=== PATIENT | female | born 1975 | race Caucasian/White ===

== ENCOUNTER 2017-10-07 16:11 | Emergency (ER) | payer MEDICARE ==
[~2017-10-07] VITALS: Ht 167.6 cm; Wt 98.0 kg
[2017-10-07 16:16] VITALS: BP 123/72; PULSE 115; RESP 16; TEMP 101.9; O2SAT 97
--- NOTE | 2017-10-07 16:41 | PD ---
HPI Chief Complaint: Skin Problem Time Seen by Provider: 16:25 Travel History International Travel<30 days: No Contact w/Intl Traveler<30days: No Traveled to known affect area: No History of Present Illness HPI The patient was seen and examined in the presence of the nurse. This patient complains of an infected lesion on her right side. Duration 3 days. Symptom severity is moderate. She is spiked a fever. She went to the hospital at [facility] yesterday and was given some antibiotics orally. No testing was done. She reports that the area is spreading and worsening. No alleviating factors. No exacerbating factors. She thought it might be an insect bite but nothing happened her specifically that she knows in that area. No history of HIV or diabetes or IV drug use PFSH Past Medical History Respiratory: Yes (LEFT LUNG REMOVED) Social History Alcohol Use: No Tobacco Use: No Substance Use: No Allergies-Medications (Allergen,Severity, Reaction): Coded Allergies: clozapine (Verified Allergy, Intermediate, BRADYCARDIA, HYPOTENSION, ) Reported Meds & Prescriptions Reported Meds & Active Scripts Active Reported [Deprexa] 250 Mg PO BID Lexapro (Escitalopram Oxalate) 20 Mg Tab 20 Mg PO DAILY Trazodone (Trazodone HCl) 100 Mg Tablet 100 Mg PO HS Review of Systems General / Constitutional: Positive: Fever, Chills Eyes: No: Visual changes HENT: No: Headaches Cardiovascular: No: Chest Pain or Discomfort Respiratory: No: Shortness of Breath Gastrointestinal: No: Abdominal Pain Genitourinary: No: Dysuria Musculoskeletal: No: Pain Skin: No Rash Neurologic: No: Weakness Psychiatric: No: Depression Endocrine: No: Polydipsia Hematologic/Lymphatic: No: Easy Bruising Physical Exam Narrative GENERAL: Well-nourished, well-developed patient in no apparent distress. SKIN: Focused skin assessment reveals no rash and nodules. Skin is Warm and dry. Patient has an erythematous indurated area in her right side. It is tender. Is warm. There is no fluctuance or drainage. Near the back of the area is a darkened scabbed place where it looks like it started. HEAD: Atraumatic. Normocephalic. EYES: Pupils equal and round. No scleral icterus. No injection or drainage. ENT: No nasal bleeding or discharge. Mucous membranes pink and moist. NECK: Trachea midline. No JVD. No meningeal signs CARDIOVASCULAR: Regular rate and rhythm. No murmur appreciated. RESPIRATORY: No accessory muscle use. Clear to auscultation. Breath sounds equal bilaterally. GASTROINTESTINAL: Abdomen soft, non-tender, nondistended. Hepatic and splenic margins not palpable. MUSCULOSKELETAL: No obvious deformities. No clubbing. No cyanosis. No edema. NEUROLOGICAL: Awake and alert. No obvious cranial nerve deficits. Motor grossly within normal limits. Normal speech. PSYCHIATRIC: Appropriate mood and affect; insight and judgment normal. Data Data Last Documented VS Vital Signs Date Time Temp Pulse Resp B/P (MAP) Pulse Ox O2 Delivery O2 Flow Rate FiO2 10/07/17 18:00 99.0 89 18 109/59 (76) 97 Room Air Orders Orders Iv Access Insert/Monitor (10/07/17 16:31) Complete Blood Count With Diff (10/07/17 16:31) Comprehensive Metabolic Panel (10/07/17 16:31) Vancomycin Inj (Vancomycin Inj) (10/07/17 16:45) Acetaminophen (Tylenol) (10/07/17 16:45) Labs Laboratory Tests Test 10/07/17 16:30 White Blood Count 12.7 TH/MM3 Red Blood Count 4.36 MIL/MM3 Hemoglobin 11.9 GM/DL Hematocrit 37.7 % Mean Corpuscular Volume 86.5 FL Mean Corpuscular Hemoglobin 27.3 PG Mean Corpuscular Hemoglobin Concent 31.6 % Red Cell Distribution Width 12.2 % Platelet Count 189 TH/MM3 Mean Platelet Volume 9.1 FL Neutrophils (%) (Auto) 81.8 % Lymphocytes (%) (Auto) 9.7 % Monocytes (%) (Auto) 7.8 % Eosinophils (%) (Auto) 0.4 % Basophils (%) (Auto) 0.3 % Neutrophils # (Auto) 10.4 TH/MM3 Lymphocytes # (Auto) 1.2 TH/MM3 Monocytes # (Auto) 1.0 TH/MM3 Eosinophils # (Auto) 0.1 TH/MM3 Basophils # (Auto) 0.0 TH/MM3 CBC Comment DIFF FINAL Differential Comment Blood Urea Nitrogen 8 MG/DL Creatinine 0.67 MG/DL Random Glucose 102 MG/DL Total Protein 7.0 GM/DL Albumin 3.3 GM/DL Calcium Level 8.3 MG/DL Alkaline Phosphatase 61 U/L Aspartate Amino Transf (AST/SGOT) 15 U/L Alanine Aminotransferase (ALT/SGPT) 16 U/L Total Bilirubin 0.3 MG/DL Sodium Level 138 MEQ/L Potassium Level 3.7 MEQ/L Chloride Level 105 MEQ/L Carbon Dioxide Level 25.4 MEQ/L Anion Gap 8 MEQ/L Estimat Glomerular Filtration Rate 97 ML/MIN MDM Medical Decision Making Medical Screen Exam Complete: Yes Emergency Medical Condition: Yes Medical Record Reviewed: Yes Differential Diagnosis Cellulitis, wound infection, abscess Narrative Course I have reviewed the patient's electronic medical record. IV placed and labs sent Gave her 1 g IV vancomycin and Tylenol for fever CBC shows minimal leukocytosis of 12.7 thousand Metabolic studies normal Lengthy discussion with patient about options. We discussed hospitalization for IV antibiotics but she does not want to go that route. I think it is premature since she literally had 1 dose of oral antibiotics so I cannot say that she had failure of outpatient treatment. She does not look septic nor toxic. She is febrile and has a skin infection. Nothing amenable to incision and drainage. There is some induration without fluctuance or drainage. The nurses marking the infected area with a marking pen. She will come back for 48 hour recheck as she does not have any primary care physician Or if she worsens in the meantime she will come back promptly. I believe the Bactrim and doxycycline are reasonable choices to initiate care with Diagnosis Primary Impression: Abdominal wall cellulitis Additional Instructions: The patient was advised to follow up with their physician and return if they worsen. Recheck in 48 hours Med/Other Pt SpecificInfo: Prescription(s) given Disposition: 01 DISCHARGE HOME Condition: Stable Lenny Mcdonald MD Oct 07, 2017 16:41
[2017-10-07] MEDS ORDERED: VANCOMYCIN INJ 1,000 MG in SODIUM CHLOR 0.9% 250 ML INJ 250 ML IV ONE (16:45)
[2017-10-07] MEDS ORDERED: ACETAMINOPHEN 500 MG CPLT PO ONE (16:45)
[2017-10-07 16:57] LABS: AUTOMATED NEUTROPHIL # 10.4 TH/MM3 (1.8-7.7); BASOPHIL % 0.3 % (0.0-2.0); EOSINOPHIL # 0.1 TH/MM3 (0-0.4); EOSINOPHIL % 0.4 % (0.0-4.0); HEMATOCRIT 37.7 % (35.0-46.0); HEMOGLOBIN 11.9 GM/DL (11.6-15.3); LYMPH % 9.7 % (9.0-44.0); LYMPHOCYTE # 1.2 TH/MM3 (1.0-4.8); MEAN CELL VOLUME 86.5 FL (80.0-100.0); MEAN CORPUSCULAR HEMOGLOBIN 27.3 PG (27.0-34.0); MEAN CORPUSCULAR HGB CONC 31.6 % (32.0-36.0); MEAN PLATELET VOLUME 9.1 FL (7.0-11.0); MONO % 7.8 % (0.0-8.0); NEUT % 81.8 % (16.0-70.0); PLATELET COUNT 189 TH/MM3 (150-450); RED BLOOD COUNT 4.36 MIL/MM3 (4.00-5.30); RED CELL DISTRIBUTION WIDTH 12.2 % (11.6-17.2); WHITE BLOOD COUNT 12.7 TH/MM3 (4.0-11.0)
[2017-10-07] MEDS ORDERED: LEXA20TA PO (17:04)
[2017-10-07] MEDS ORDERED: TRAZ100T10 PO (17:04)
[2017-10-07] MEDS ORDERED: [UNRECOGNIZED DRUG - OTHER] PO (17:04)
[2017-10-07 18:00] VITALS: BP 109/59; PULSE 89; RESP 18; TEMP 99; O2SAT 97
[2017-10-07 18:12] LABS: CHLORIDE 105 MEQ/L (98-107); SODIUM (NA) 138 MEQ/L (136-145)
[2017-10-07 18:23] LABS: CALCIUM 8.3 MG/DL (8.5-10.1)
[2017-10-07 18:24] LABS: ALBUMIN 3.3 GM/DL (3.4-5.0); BICARBONATE 25.4 MEQ/L (21.0-32.0); BLOOD UREA NITROGEN 8 MG/DL (7-18); GLUCOSE,RANDOM 102 MG/DL (74-106)
[2017-10-07 18:27] LABS: ALT (GPT) 16 U/L (10-53); AST (GOT) 15 U/L (15-37); CREATININE 0.67 MG/DL (0.50-1.00); GLOMERULAR FILTRATION RATE 97 ML/MIN (>89)
[2017-10-07 18:29] LABS: TOTAL BILIRUBIN ADULT 0.3 MG/DL (0.2-1.0)
[2017-10-07 18:30] LABS: ALKALINE PHOSPHATASE 61 U/L (45-117)
== END 2017-10-07 19:01 | disposition home or self-care (01) ==
LOC: PHED 16:11
DX: L03.311 Cellulitis of abdominal wall (principal); Z79.899 Other long term (current) drug therapy; Z88.8 Allergy status to other drugs, medicaments and biological substances
CPT/HCPCS: 80053; 85025; 96365; 99284; J3370; J7050

== ENCOUNTER 2017-10-09 09:00 | Emergency (ER) | payer MEDICARE ==
[~2017-10-09] VITALS: Ht 167.6 cm; Wt 97.8 kg
[~2017-10-09 09:00] MED LIST: LEXA20TA PO; TRAZ100T10 PO; [UNRECOGNIZED DRUG - OTHER] PO
[2017-10-09 09:07] VITALS: BP 130/58; PULSE 86; RESP 16; TEMP 98.8; O2SAT 98
[2017-10-09] MEDS ORDERED: BACT800T5 PO (09:19)
[2017-10-09] MEDS ORDERED: DOXY100C PO (09:19)
--- NOTE | 2017-10-09 10:13 | PD ---
HPI Chief Complaint: Skin Problem Time Seen by Provider: 10:05 Travel History International Travel<30 days: No Contact w/Intl Traveler<30days: No Traveled to known affect area: No History of Present Illness HPI 42-year-old female here for recheck of right abdominal wall cellulitis. She was seen 2 days ago and discharged home on Bactrim and doxycycline. She denies any fevers. Reports compliance with antibiotics. Reports she has continued pain at the site but not worsening pain. The wound was marked with a pen at the prior visit and the erythema has not spread beyond those lines. Symptom severity is moderate. Aggravated by palpation of the area. PFSH Past Medical History Bipolar Disorder: Yes Depression: Yes Diminished Hearing: No Respiratory: Yes (LEFT LUNG REMOVED) Immunizations Current: Yes ?: Not Tubal Ligation: Yes Past Surgical History Hysterectomy: Yes Other Surgery: Yes (LUNG REMOVAL) Social History Alcohol Use: No Tobacco Use: No Substance Use: No Allergies-Medications (Allergen,Severity, Reaction): Coded Allergies: clozapine (Verified Allergy, Intermediate, BRADYCARDIA, HYPOTENSION, ) Reported Meds & Prescriptions Reported Meds & Active Scripts Active Reported Doxycycline Hyclate 100 Mg Cap 100 Mg PO BID Bactrim DS (Sulfamethoxazole-Trimethoprim) 800-160 Mg Tab 1 Tab PO BID [Deprexa] 250 Mg PO BID Lexapro (Escitalopram Oxalate) 20 Mg Tab 20 Mg PO DAILY Trazodone (Trazodone HCl) 100 Mg Tablet 100 Mg PO HS Review of Systems Except as stated in HPI: all other systems reviewed are Neg General / Constitutional: No: Fever HENT: No: Headaches Cardiovascular: No: Chest Pain or Discomfort Respiratory: No: Shortness of Breath Gastrointestinal: No: Abdominal Pain Genitourinary: No: Dysuria Physical Exam Narrative GENERAL: Alert and well-appearing 42-year-old female SKIN: Warm and dry. Erythema with induration noted to right abdominal wall. No fluctuance. Erythema well within the borders of the marked area. HEAD: Normocephalic. EYES: No injection or drainage. NECK: Supple CARDIOVASCULAR: Regular rate and rhythm without murmurs, gallops, or rubs. RESPIRATORY: Breath sounds equal bilaterally. No accessory muscle use. GASTROINTESTINAL: Abdomen soft, non-tender, nondistended. MUSCULOSKELETAL: No cyanosis, or edema. BACK: Nontender without obvious deformity. No CVA tenderness. Data Data Last Documented VS Vital Signs Date Time Temp Pulse Resp B/P (MAP) Pulse Ox O2 Delivery O2 Flow Rate FiO2 10/09/17 09:07 98.8 86 16 130/58 (82) 98 MDM Medical Decision Making Medical Screen Exam Complete: Yes Emergency Medical Condition: Yes Differential Diagnosis Cellulitis recheck, outpatient treatment failure, abscess formation Narrative Course 42-year-old female here for recheck of cellulitis to the right abdominal wall. She is nontoxic appearing. Afebrile. Erythema well within the marked borders. She is encouraged to continue antibiotics and follow-up in 2 days for recheck if she has persistent pain. Return prior if she develops fever, severe increasing pain, erythema spreading beyond the borders. Diagnosis Primary Impression: Cellulitis Qualified Codes: L03.311 - Cellulitis of abdominal wall Referrals: [facility] Additional Instructions: Continue antibiotics. Warm compresses to the area. Return in 2 days for recheck Disposition: 01 DISCHARGE HOME Condition: Stable Marion Moralez Oct 09, 2017 10:13
== END 2017-10-09 10:25 | disposition home or self-care (01) ==
LOC: PHED 09:00
DX: L03.311 Cellulitis of abdominal wall (principal); F31.9 Bipolar disorder, unspecified
CPT/HCPCS: 99282

== ENCOUNTER 2017-10-11 09:13 | Emergency (ER) | payer MEDICARE ==
[~2017-10-11] VITALS: Ht 162.6 cm; Wt 98.4 kg
[~2017-10-11 09:13] MED LIST changes: +BACT800T5 PO; +DOXY100C PO
[2017-10-11 09:17] VITALS: BP 113/58; PULSE 72; RESP 16; TEMP 98.2; O2SAT 99
--- NOTE | 2017-10-11 09:28 | PD ---
HPI Chief Complaint: Wound/Suture/Staple Re-Check Time Seen by Provider: 09:23 Travel History International Travel<30 days: No Contact w/Intl Traveler<30days: No Traveled to known affect area: No History of Present Illness HPI 42y female presents to the ED for wound check and work note. Says she has been complaint with her regimen with antibiotics and warm compresses. Says he pain has reduced significantly and she denies fevers. Says the wound has decreased in size. She has no other complaints today. PFSH Past Medical History Hx Anticoagulant Therapy: No Bipolar Disorder: Yes Depression: Yes Diabetes: No Diminished Hearing: No Respiratory: Yes (LEFT LUNG REMOVED) Immunizations Current: Yes Tetanus Vaccination: < 5 Years ?: Not Tubal Ligation: Yes Past Surgical History Hysterectomy: Yes Other Surgery: Yes (LUNG REMOVAL) Social History Alcohol Use: No Tobacco Use: No Substance Use: No Allergies-Medications (Allergen,Severity, Reaction): Coded Allergies: clozapine (Verified Allergy, Intermediate, BRADYCARDIA, HYPOTENSION, ) Reported Meds & Prescriptions Reported Meds & Active Scripts Active Reported Doxycycline Hyclate 100 Mg Cap 100 Mg PO BID Bactrim DS (Sulfamethoxazole-Trimethoprim) 800-160 Mg Tab 1 Tab PO BID [Deprexa] 250 Mg PO BID Lexapro (Escitalopram Oxalate) 20 Mg Tab 20 Mg PO DAILY Trazodone (Trazodone HCl) 100 Mg Tablet 100 Mg PO HS Review of Systems Except as stated in HPI: all other systems reviewed are Neg Physical Exam Narrative GENERAL: Well-nourished, well-developed patient, in NAD SKIN: Focused skin assessment warm/dry. No rashes or lesions. HEAD: Normocephalic. Atraumatic. EYES: No scleral icterus. No injection or drainage. THROAT: Airway is patent. NECK: Supple, trachea midline. No JVD or lymphadenopathy. No meningismus. CARDIOVASCULAR: Regular rate and rhythm without murmurs, gallops, or rubs. RESPIRATORY: Breath sounds equal bilaterally. No accessory muscle use. No wheezes, rales, or rhonchi Abdominal wall- 10x5cm area of erythema and induration without fluctuance. no TTP. non mobile area of erythema. MUSCULOSKELETAL: No cyanosis, or edema. BACK: Nontender without obvious deformity. No CVA tenderness. Data Data Last Documented VS Vital Signs Date Time Temp Pulse Resp B/P (MAP) Pulse Ox O2 Delivery O2 Flow Rate FiO2 10/11/17 09:17 98.2 72 16 113/58 (76) 99 MDM Medical Decision Making Medical Screen Exam Complete: Yes Emergency Medical Condition: Yes Differential Diagnosis Right abdominal wall cellulitis, abscess, erysipelas Narrative Course 42y female presents to the ED for wound check and work note. Says she has been complaint with her regimen with antibiotics and warm compresses. Says he pain has reduced significantly and she denies fevers. Says the wound has decreased in size. She has no other complaints today. Vital signs are stable. Physical exam findings demonstrate a well-developed, well-nourished 42-year-old female no acute distress. The area of concern for wound check is nonmobile, indurated, erythematous without drainage. No fluctuance. Patient advised to continue warm compresses until there is no more fluid expressed. Continue antibiotics until all gone. I do not see why patient would be unable to return to work. Patient may return without restrictions. Diagnosis Primary Impression: Visit for wound check Referrals: Primary Care Physician Patient Instructions: Cellulitis (ED), General Instructions Departure Forms: Tests/Procedures, Work Release Enter return to work date: Oct 10, 2017 Special Instructions: without restrictions Additional Instructions: Continue to use hot compresses until there is no more drainage. Complete ALL antibiotics as prescribed. Follow up with your primary are physician within 2-3 days, sooner if the infection worsens. Disposition: 01 DISCHARGE HOME Condition: Stable Irina Abrams Oct 11, 2017 09:28
== END 2017-10-11 09:41 | disposition home or self-care (01) ==
LOC: PHED 09:13 → PHEFT 09:41
DX: Z48.00 Encounter for change or removal of nonsurgical wound dressing (principal); L03.311 Cellulitis of abdominal wall; F31.9 Bipolar disorder, unspecified
CPT/HCPCS: 99281